=== PATIENT | male | born 1965 | race Caucasian/White ===

== ENCOUNTER → 2020-05-09 07:30 | Outpatient (CLI) | payer OTHER, SELFPAY ==
[2020-05-09 08:57] LABS: Alanine Aminotransferase 39 IU/L (<50); Albumin 4.8 g/dL (3.5-5.0); Albumin Globulin Ratio 1.5 (1.0-2.8); Alkaline Phosphatase 52 U/L (38-126); Aspartate Aminotransferase 36 IU/L (17-59); Bilirubin Total 1.1 mg/dL (0.2-1.3); Blood Urea Nitrogen 15 mg/dL (9-20); Calcium 9.7 mg/dL (8.4-10.2); Carbon Dioxide 28 mmol/L (22-32); Chloride 101 mmol/L (98-107); Cholesterol 243 mg/dL (140-199); Estimated Glomerular Filt Rate > 60.0 mL/min (>60); Globulin 3.1 g/dL (1.7-4.1); Glucose 110 mg/dL (70-100); HDL Cholesterol 47 mg/dL (40-60); HEMOLYSIS < 15 (0-50); LDL Cholesterol Calculated 180 mg/dL (<100); Potassium 4.4 mmol/L (3.4-5.1); Sodium 138 mmol/L (137-145); Total Protein 7.9 g/dL (6.3-8.2); Triglycerides 81 mg/dL (35-150)
== END ==
PROVIDERS: PCP Student in an Organized Health Care Education/Training Program; Referring Provider Student in an Organized Health Care Education/Training Program; Visit Provider Student in an Organized Health Care Education/Training Program
DX: E78.2 Mixed hyperlipidemia (principal); I10 Essential (primary) hypertension
CPT/HCPCS: 36415; 80053; 80061

== ENCOUNTER → 2020-08-20 11:06 | Outpatient (CLI) | payer OTHER, SELFPAY ==
--- NOTE | 2020-08-20 | DI.US.S_ITS ---
PROCEDURE: US ABDOMEN LIMITED INDICATIONS: RIGHT LOWER QUADRANT PAIN TECHNIQUE: Real-time focused scanning was performed of the abdomen, with image documentation. COMPARISON: None. FINDINGS: Scanning is performed of the right groin pain. At this site, there is a mild right inguinal hernia seen that measures 3.1 x 2 x 2 cm. The hernia contents move with Valsalva maneuver. There does appear to be peristalsis within the hernia contents. There is also an enlarged lymph node seen within the right groin that measures 3 x 0.8 x 1.2 cm. IMPRESSION: Right groin hernia seen, which appears to contain bowel. The hernia contents move with Valsalva maneuver. A surgical referral is recommended. If it would be helpful for clinical management decision making, please consider a dedicated pelvis CT, performed with IV and oral contrast. Dictated by: Sylvain Hilario M.D. on 08/20/2020 at 12:34 Approved by: Sylvain Hilario M.D. on 08/20/2020 at 12:36
== END ==
PROVIDERS: PCP Student in an Organized Health Care Education/Training Program; Referring Provider Student in an Organized Health Care Education/Training Program; Visit Provider Student in an Organized Health Care Education/Training Program
DX: R10.31 Right lower quadrant pain (principal); K40.90 Unilateral inguinal hernia, without obstruction or gangrene, not specified as recurrent
CPT/HCPCS: 76705

== ENCOUNTER → 2020-08-31 11:47 | Outpatient (CLI) | payer OTHER, SELFPAY ==
[2020-09-01 22:42] LABS: COVID19 Sendout Not Detected (Not Detect)
== END ==
PROVIDERS: PCP Student in an Organized Health Care Education/Training Program; Visit Provider Physician Assistant
DX: Z11.59 Encounter for screening for other viral diseases (principal)
CPT/HCPCS: 87635

== ENCOUNTER 2020-09-03 09:59 | Day surgery (SDC) | payer OTHER, SELFPAY ==
[2020-08-29 12:22] VITALS: BMI 29.0
[2020-09-03] VITALS (9 sets, daily range): BP systolic 144–158; BP diastolic 65–98; PULSE 58–86; RESP 14–28; TEMP 36.3–37; O2SAT 95–99; BMI 29.0
[2020-09-03] MEDS: LACTATED RINGERS 1,000 ML 42 ML IV (10:08)
--- NOTE | 2020-09-03 11:02 | PM.PREOP ---
Pre-operative Note COVID-19 COVID-19 status: Negative Interval Note History & Physical reviewed/Exam performed by Physician: Yes Changes to H&P: No
[2020-09-03] MEDS: CEFAZOLIN 2 GM/100 ML FROZ.PIGGY IV (11:12)
--- NOTE | 2020-09-03 11:27 | SUR.OPER ---
Supine on padded OR bed, head on pillow, arms secured on padded arm boards at <90 degrees abduction, legs uncrossed, safety belt at thigh, tape over blanket over lower legs.
[2020-09-03] MEDS: BUPIVACAINE 0.25% (PF) VIAL 30 ML INJ (11:40)
[2020-09-03] MEDS: fentaNYL 100 MCG/2 ML INJ IV ×2 (12:37→12:43)
[2020-09-03] MEDS: OXYCODONE/ACETAMINOPHEN 5/325 TABLET 1 TAB PO (13:00)
--- NOTE | 2020-09-05 10:05 | P.OP_ITS ---
Operative Date/Time/Diagnoses Date of procedure: 09/03/20 Pre-op diagnosis: Right inguinal hernia Post-op diagnosis: same Procedure & Clinicians Procedure: Open right inguinal hernia repair Same procedure as scheduled: Yes Indications: 55-year-old man with a symptomatic right inguinal hernia Surgeon: Merrick Khan Yes if Unassisted: Yes Anesthesia Type: General Operative Notes Findings: Direct floor defect, Specimen(s): none sent Estimated Blood Loss (mL): 20 Procedure in detail: The patient was placed supine on the table and bilateral lower extremity compression devices were applied. Anesthesia was induced they were intubated with an LMA and received 2g of Ancef. A time-out was performed. They were prepped and draped in sterile fashion. The right external inguinal ring and the anterior superior iliac crest were identified and marked. 1 finger breath above the inguinal ligament the skin was infiltrated with 0.25% bupivacaine. The skin incision was made here and the subcutaneous tissues were divided with electrocautery exposing the external oblique aponeurosis which was then opened along the direction of its fibers. Using blunt dissection the internal oblique aporneurosis was from the external oblique upper leaflet to identify the iliohypogastric nerve. Using a kittner the cord was carefully dissected away from the inguinal canal adjacent to the pubic tubercle. The cord including the vas deferens, testicular bloody supply, ilioguinal and genital nerve were encircled with a Brandi drain. A direct floor defect was identified and it was reduced into the abdomen and the internal oblique aporneuorsis was approximated to the inguinal ligament with 0 Ethibond suture to reapproximate the floor. The cremasteric fibers surrounding the cord were divided using electrocautery adjacent to the internal ring.. The vas deferens and the testicular vessels were preserved and protected. There was no evidence of a indirect hernia. I selected a 7x 15 cm lightweight Pro Loop hernia mesh. The inferior medial aspect of the mesh was anchored to insertion of the rectus muscle to the pubic tubercle such that there was approximately 2 cm of tubercle overlap with Ethibond and then was run continuously along the inferior edge of the mesh to the shelving edge of the inguinal ligament. Interrupted 3 0 Vicryl suture was used to anchor the superior aspect of the mesh to the conjoined tendon in several places. The tails were then reapproximated loosely around the spermatic cord. The tails of the mesh were then tucked under the external oblique aponeurosis. The repair was checked for hemostasis. The wound was irrigated with sterile saline. The external oblique aponeurosis was re approximated in a running fashion using 3 0 Vicryl. The subcutaneous tissues were reapproximated with 3 0 Vicryl skin closed with 4 0 Monocryl followed by the application of Dermabond. At the end of the operation I ensured that both testicles were within the scrotum. The sponge instrument count at the end operation was correct. The patient emerged from anesthesia was extubated and transferred to the postoperative care unit in stable condition. A total of 30 ml of of 0.25% bupivicaine was used to infiltrate the skin. Complications: none Post-operative Condition: stable Disposition: same day surgery
== END 2020-09-03 13:34 | disposition home or self-care (01) ==
PROVIDERS: PCP Student in an Organized Health Care Education/Training Program; Referring Provider Surgery; Visit Provider Surgery
PROC: (CPT 49505; principal; 2020-09-03 11:15)
DX: K40.90 Unilateral inguinal hernia, without obstruction or gangrene, not specified as recurrent (principal); I10 Essential (primary) hypertension; E78.5 Hyperlipidemia, unspecified
CPT/HCPCS: 49505; C1781; J0690; J3010

== ENCOUNTER → 2021-06-13 10:57 | Outpatient (CLI) | payer OTHER, SELFPAY ==
--- NOTE | 2021-06-13 | DI.US.S_ITS ---
PROCEDURE: US ABDOMEN LIMITED INDICATIONS: LOWER ABD PAIN TECHNIQUE: Real-time scanning was performed of the abdominal and retroperitoneal organs, with image documentation. COMPARISON: [facility], , US ABDOMEN LIMITED, 08/20/2020, 11:59. FINDINGS: Soft tissue ultrasound of the right groin was performed without and with Valsalva. No hernia in the right groin is identified. 2 prominent but normal appearing lymph nodes in the right groin are present. IMPRESSION: Normal ultrasound of the right groin with no hernia identified. Dictated by: Wilfredo Jc M.D. on 06/13/2021 at 12:03 Approved by: Wilfredo Jc M.D. on 06/13/2021 at 12:03
== END ==
PROVIDERS: PCP Student in an Organized Health Care Education/Training Program; Referring Provider Student in an Organized Health Care Education/Training Program; Visit Provider Student in an Organized Health Care Education/Training Program
DX: R10.30 Lower abdominal pain, unspecified (principal)
CPT/HCPCS: 76705

== ENCOUNTER → 2021-08-22 09:26 | Outpatient (CLI) | payer OTHER, SELFPAY ==
[2021-08-22 11:08] LABS: COVID19 -Nasal RAPID Negative (Negative)
== END ==
PROVIDERS: PCP Student in an Organized Health Care Education/Training Program; Visit Provider Surgery
DX: Z01.812 Encounter for preprocedural laboratory examination (principal); Z20.822 Contact with and (suspected) exposure to COVID-19
CPT/HCPCS: 87635; C9803

== ENCOUNTER 2021-08-25 09:51 | Day surgery (SDC) | payer OTHER, SELFPAY ==
[2021-08-25] VITALS (7 sets, daily range): BP systolic 113–135; BP diastolic 78–89; PULSE 59–80; RESP 10–97; TEMP 36.3–36.9; O2SAT 19–98; BMI 28.6
--- NOTE | 2021-08-25 | PATH_ITS ---
[facility] Accession Number: [id number] . 01 Material submitted: . PART A: sigmoid colon - SIGMOID COLON POLYP PART B: body - MUCOSA ABNORMALITY NEAR POLYP PART C: sigmoid colon - SIGMOID COLON POLYP 5MM PART D: rectum - RECTAL POLYP . 02 Diagnosis: A. Sigmoid Colon, Polyp, Biopsy: Tubulovillous adenoma. No evidence of malignancy or high-grade dysplasia. . B. Mucosal Abnormality Near Polyp, Biopsy: Colonic mucosa with no diagnostic abnormality. Negative for active, chronic, and microscopic colitis. Negative for dysplasia and malignancy. . C. Sigmoid Colon, Polyp 5 mm, Biopsy: Hyperplastic polyp. . D. Rectum, Polyp, Biopsy: Hyperplastic polyp. [facility] 08/27/2021 1032 Local . 02 Electronically signed: . Francie Reyez MD, Pathologist NPI- [id number] . 01 Gross description: . A. Received in formalin and labeled with sigmoid colon polyp are two pieces of hahn soft tissue measuring 1.3 x 1.0 x 0.6 to 0.9 x 0.7 x 0.6 cm. The first piece is inked, serially sectioned into four slices and entirely submitted in cassette A1. The second piece is inked, serially sectioned into four slices and entirely submitted in cassette A2. B. Received in formalin and labeled with mucosa ABN near polyp are two fragments of hahn soft tissue measuring 0.3 x 0.3 x 0.2 to 0.3 x 0.3 x 0.1 cm. Both fragments are entirely submitted in cassette B1. C. Received in formalin and labeled with sigmoid colon polyp 5 mm is one fragment of hahn soft tissue measuring 0.3 x 0.3 x 0.2 cm. The fragment is entirely submitted in cassette C1. D. Received in formalin and labeled with rectal polyp is one fragment of hahn soft tissue measuring 0.4 x 0.3 x 0.2 cm. The fragment is entirely submitted in cassette D1. ([id number]) /MRV 08/26/2021 0941 Local . 02 Pathologist provided ICD-10: D12.5 . 02 CPT . 318204, [id number], [id number], [id number] Performed at: 01 [facility] Cyt[facility] [address] [address], [place], [place] [id number] MD John Mobley MD Phone: [phone] Performed at: 02 [facility] [id number] [place] [id number] MD Francie Reyez MD Phone: [phone]
[2021-08-25] MEDS: LACTATED RINGERS 1,000 ML 200 ML IV (10:30)
--- NOTE | 2021-08-25 10:51 | PM.HP.1 ---
History of Present Illness History of Present Illness Date Patient Seen: 08/25/21 Time Patient Seen: 10:51 Chief complaint: SDC Narrative: The patient presents for colorectal sreening. They have never had any previous examination for such. No personal or family history of colon cancer. On further history denies any recent gastrointestinal symptoms. No nausea, vomiting, abdominal pain, loss of appetite, unexplained weight loss, change in bowel habits, diarrhea, constipation, melena, hematochezia, or bright red blood per rectum. Patient History Medical History GERD (gastroesophageal reflux disease) HTN (hypertension) Hyperlipidemia MASTER on CPAP Surgical History Hx of tonsillectomy Family & Social History Family History Mother Hypertension Heart disease Diabetes mellitus Cancer Father Hypertension Heart disease Diabetes mellitus Stroke Sister Diabetes mellitus Social History: household members spouse Tobacco & Substance use: Smoking Status Former smoker alcohol intake current alcohol intake frequency a few times a week Substance Use Type marijuana Meds Home Medications and Allergies Home Medications Medication Instructions Recorded Confirmed Type lisinopril 20 mg tablet 20 mg PO DAILY 09/18/19 10/02/20 History atorvastatin 10 mg tablet 10 mg PO DAILY 08/28/20 10/02/20 History Allergies Allergy/AdvReac Type Severity Reaction Status Date / Time No Known Drug Allergies Allergy Verified 10/02/20 10:35 Review of Systems Review of Systems ROS: Yes All systems reviewed with the patient and are negative except as otherwise documented Exam Vital Signs (past 8 hours): - 08/25/21 10:15 Temperature 97.7 F Pulse Rate 80 Respiratory Rate 16 Blood Pressure 134/89 Pulse Oximetry 98 Oxygen Delivery Method Room Air Narrative Exam Narrative: Constitutional-he is oriented to person, place and time. No apparent distress Cardiovascular- regular rate, no peripheral edema Pulmonary-unlabored respiratory effort, no audible wheezing Abdominal-soft, non-tender, non-distended Musculoskeletal-no cyanosis or clubbing Neurological-nonfocal, normal strength throughout, normal gait. Skin-warm and dry Assessment & Plan Assessment and plan (1) Screening for colon cancer: Status: Acute Assessment & Plan narrative: The patient requires colorectal screening and colonoscopy is recommended. Technical details were discussed. Risks, benefits, alternatives explained. Risks including but not limited to myocardial infarction, aspiration, bleeding, pain, missed lesion, incomplete examination, need for further radiographic studies, colonic perforation, and need for major abdominal surgery were discussed. All questions were answered to their satisfaction, and they are in agreement with this plan. Time Spent With Patient Critical Care time: I spent a total of [] minutes of critical care time on this patient's care today; this time is exclusive of procedural time.
[2021-08-25] MEDS: MIDAZOLAM 5 MG/5 ML VIAL IV (10:59)
[2021-08-25] MEDS: fentaNYL 250 MCG/5 ML INJ IV (11:01)
[2021-08-25] MEDS: METOPROLOL TARTRATE 5 MG/5 ML INJ IV (11:14)
--- NOTE | 2021-08-25 11:22 | PM.OP.ENDO ---
Operative Date/Time/Diagnoses Date of procedure: 08/25/21 Time of procedure: 11:22 Pre-op diagnosis: Screening colonoscopy Post-op diagnosis: same Procedure & Clinicians Study performed: Colonoscopy Same procedure as scheduled: Yes Indications: Screening no prior Surgeon: Merrick Kapadia Procedure Notes Procedure in detail: Medications: Conscious sedation using 5mg IV midazolam and 125mcg IV of fentanyl The history and physical was performed/updated and the patient is ASA class is 2. The procedure was discussed in detail with the patient. Potential risks complications including infection, bleeding, missed diagnosis, perforation, need for surgery, and were explained. Their questions were answered and informed consent was obtained. Patient was brought to the procedure room and placed standard monitoring equipment. The patient's vital signs were monitored continuously throughout the entire procedure. Prior to starting time-out was performed. The patient was placed in the left lateral recumbent position. Procedural sedation was administered. Examination began with a thorough inspection of the perianal area there was no evidence of fissures, fistulae, external hemorrhoids or cutaneous malignancy. The colonoscopy scope was then placed into the anal canal and was advanced to the cecum, which was identified by the ileocecal valve, the appendiceal orifice and the confluence of the taenia. The scope was then slowly withdrawn examining colon thoroughly in all directions, irrigating it of any residual stool. FINDINGS 1. 3 cm sigmoid polyp at 30 cm from the anal verge removed in pieces using hot snare. There was mucosal abnormality just distal to the polyp it was difficult to tell whether this material was continuation of the polyp or whether this was in fact just normal colonic wall mucosa. Biopsy was performed with the biopsy forceps. The lesion was removed in its entirety. The site was tattooed with 4 mL of ink injected into the submucosal space on in for quadrants just distal to the lesion. 2. Rectal polyp 5 mm removed with biopsy forceps The patient tolerated the procedure well. They will be discharged once criteria are met. The prep was of good/excellent quality. The withdrawl time was * minutes. The sedation time was * minutes. Specimen(s): other (Sigmoid polyp, mucosal abnormality biopsy, rectal polyp) Complications: none Impression: Colonic polyps Post-procedure Plan for aftercare: Will notify with results of biopsy Disposition: same day surgery
== END 2021-08-25 12:02 | disposition home or self-care (01) ==
PROVIDERS: PCP Student in an Organized Health Care Education/Training Program; Referring Provider Surgery; Visit Provider Surgery
PROC: 0DJD8ZZ Inspection of Lower Intestinal Tract, Via Natural or Artificial Opening Endoscopic (ICD-10-PCS; CPT 45378; principal; 2021-08-25 10:45)
DX: D12.5 Benign neoplasm of sigmoid colon (principal); K62.1 Rectal polyp; K21.9 Gastro-esophageal reflux disease without esophagitis; I10 Essential (primary) hypertension; E78.5 Hyperlipidemia, unspecified; G47.33 Obstructive sleep apnea (adult) (pediatric); Z12.11 Encounter for screening for malignant neoplasm of colon
CPT/HCPCS: 45385; 45380; 45381; J2250; J3010

== ENCOUNTER 2021-11-21 12:49 | Emergency (ER) | payer OTHER, SELFPAY ==
[2021-11-21] VITALS (13 sets, daily range): BP systolic 155–219; BP diastolic 97–115; PULSE 68–83; RESP 14–20; TEMP 36.3; O2SAT 96–98; BMI 30.8
--- NOTE | 2021-11-21 13:15 | DI.RAD.S_ITS ---
PROCEDURE: XR CHEST 1V INDICATIONS: chest pain TECHNIQUE: One view of the chest was acquired. COMPARISON: None. FINDINGS: Surgical changes and devices: None. Lungs and pleura: Lungs are clear. No pleural effusions or pneumothorax. Mediastinum: Mediastinal contours appear normal. Heart size is normal. The aorta is tortuous. Bones and chest wall: No suspicious bony lesions. Overlying soft tissues appear unremarkable. IMPRESSION: No acute cardiopulmonary abnormality. Dictated by: Wilfredo Jc M.D. on 11/21/2021 at 12:49 Approved by: Wilfredo Jc M.D. on 11/21/2021 at 12:49
[2021-11-21 13:41] LABS: Add Manual Diff / Slide Review NO; Basophils Absolute Auto 100 /uL (0-100); Basophils Percent Auto 0.8 % (0-2); Eosinophils Absolute Auto 200 /uL (0-450); Eosinophils Percent Auto 2.5 % (2-4); Hematocrit 43.8 % (41-53); Hemoglobin 15.4 g/dL (13.5-17.5); Lymphocytes Absolute Auto 1700 /uL (1100-4500); Lymphocytes Percent Auto 20.2 % (25-40); Mean Corpuscular HGB Conc 35.2 % (30-36); Mean Corpuscular Hemoglobin 30.7 PG (26-34); Mean Corpuscular Volume 87.3 fL (80-100); Monocytes Absolute Auto 900 /uL (0-900); Monocytes Percent Auto 10.1 % (3-14); Neutrophils Absolute Auto 5600 /uL (1500-7000); Neutrophils Percent Auto 66.4 % (50-75); Platelet Count 236 X10^3/uL (150-400); Red Blood Cell Count 5.01 X10^6/uL (4.5-5.9); Red Cell Distribution Width 12.7 % (11.6-14.8); White Blood Cell Count 8.5 X10^3/uL (4.5-11.0)
[2021-11-21 13:44] LABS: INR 1.1 (0.9-1.3); Prothrombin Time 12.1 SECONDS (10.1-12.7)
[2021-11-21 13:46] LABS: PTT Partial Thromboplastin Tim 34 SECONDS (26.4-36.2)
[2021-11-21 13:49] LABS: Alanine Aminotransferase 54 IU/L (<50); Albumin 4.9 g/dL (3.5-5.0); Albumin Globulin Ratio 1.5 (1.0-2.8); Alkaline Phosphatase 49 U/L (38-126); Aspartate Aminotransferase 46 IU/L (17-59); BUN Creatinine Ratio 13.2 (6-22); Bilirubin Total 1.6 mg/dL (0.2-1.3); Blood Urea Nitrogen 10 mg/dL (9-20); Calcium 9.3 mg/dL (8.4-10.2); Carbon Dioxide 29 mmol/L (22-32); Chloride 101 mmol/L (98-107); Creatine Kinase 93 U/L (55-170); Estimated Glomerular Filt Rate > 60.0 mL/min (>60); Globulin 3.3 g/dL (1.7-4.1); Glucose 95 mg/dL (70-100); Lipase 218 U/L (23-300); Magnesium 1.7 mg/dL (1.6-2.3); Potassium 4.1 mmol/L (3.4-5.1); Sodium 139 mmol/L (137-145); Total Protein 8.2 g/dL (6.3-8.2)
[2021-11-21 13:50] LABS: HEMOLYSIS 56 (0-50)
[2021-11-21 14:00] LABS: Troponin I < 0.012 ng/mL (0.01-0.034)
--- NOTE | 2021-11-21 16:47 | ED.GENADULT ---
HPI - General Adult General Chief complaint: Hypertension Stated complaint: High blood pressure/pain behind left ear today Time Seen by Provider: 11/21/21 16:46 Source: patient Mode of arrival: Ambulatory Limitations: no limitations History of Present Illness HPI narrative: This is a 56-year-old male who comes to the emergency department with complaint of high blood pressure and pain behind left ear. Patient states he has had elevated blood pressure for the past week. He saw his primary care who increased his lisinopril from 20 mg to 40 mg daily. He takes this in the morning. His only other medication is atorvastatin. Patient today had a 205/105. He has a blood pressures that he has checked 2 or 3 times daily since the 18 ranging anywhere from 120/75 to 200/1 teens. There does not appear to be any consistency with his blood pressure. He also notes he has had some discomfort just behind the left ear in the crease. He does not recall any injuries. He has not any had warmth, erythema or skin changes. It feels like it is just local to that area. He does wear CPAP and masks for work which do seem to be irritated. Has not had headaches. He denies chest pain, no shortness of breath. He has not had any hearing changes, no pain within the ear. No pain in the neck or in the cheek or mouth he has not had any other swelling. No sweats. No fevers or chills. No nausea or vomiting no other GI or urinary symptoms. Patient states he does get very anxious when his blood pressure is high. Besides dyslipidemia and hypertension no other medical issues. No prior cardiac stents. He has had hernia and colonoscopy. No allergies. He quit smoking 12 years ago in . He drinks 4-5 hard alcoholic drinks daily but denies any withdrawal symptoms when he does not drink. No illicit drugs. His primary care is Chante Martin. Related Data Home Medications Medication Instructions Recorded Confirmed lisinopril 20 mg tablet 20 mg PO DAILY 09/18/19 09/04/21 atorvastatin 10 mg tablet 10 mg PO DAILY 08/28/20 09/04/21 Previous Rx's Medication Instructions Recorded metoprolol tartrate 25 mg tablet 25 mg PO DAILY #14 tab 11/21/21 Allergies Allergy/AdvReac Type Severity Reaction Status Date / Time No Known Drug Allergies Allergy Verified 09/04/21 15:11 Review of Systems Review of Systems ROS Unobtainable: All systems reviewed & are unremarkable except as noted in HPI and below Patient History Medical History GERD (gastroesophageal reflux disease) HTN (hypertension) Hyperlipidemia MASTER on CPAP Surgical History Hx of tonsillectomy Family History Mother Hypertension Heart disease Diabetes mellitus Cancer Father Hypertension Heart disease Diabetes mellitus Stroke Sister Diabetes mellitus Social History marital status: household members: spouse occupational status: employed Smoking Status: Former smoker alcohol intake: current Smoking Status: Former smoker alcohol intake frequency: a few times a week Substance Use Type: marijuana Exam Narrative Exam Narrative: GEN: well nourished, well appearing male, alert and oriented x 3, patient appears to be in mild distress. HEENT: Atraumatic, pupils are equal round reactive to light, extraocular movements are intact, nares are clear, TMs are clear with no fluid, patient is nontender to palpation. There is an area that appears slightly callused in the posterior crease of the left ear. There is no warmth, erythema or swelling. There is no rash or skin changes. There is no fluctuance. Does not feel indurated. Patient does not have any swelling of the neck, cheeks or airway. He is nontender over the parotid gland and salivary glands. With no bony tenderness. Is no conjunctival pallor. Throat is clear without any exudates, erythema, tonsillar enlargement or uvular deviation HEART: Regular rate and rhythm without murmur, clicks, rubs. No carotid bruits. LUNGS:Lungs clear to auscultation, no wheezes, rales, crackles, chest moves symmetrically ABD:bowel sounds normal, soft, non-tender, no guarding, rebound, rigidity, no masses noted, no hepatosplenomegaly :No CVA tenderness MSCL: Non-tender, no muscle atrophy, muscles strength 5/5 upper and lower extremities, full range of motion, normal gait NEURO:CN 2-12 intact SKIN: No rash, erythema or skin changes. Initial Vital Signs Initial Vital Signs: Vital Signs Temperature 97.4 F L 11/21/21 12:55 Pulse Rate 83 11/21/21 12:55 Respiratory Rate 20 11/21/21 12:55 Blood Pressure 204/115 H 11/21/21 12:55 Pulse Oximetry 98 11/21/21 12:55 Course Orders Ordered: ED Orders 11/21/21 13:08 EKG-12 Lead Stat 11/21/21 13:15 XR chest 1V Stat 11/21/21 13:25 Complete Blood Count AUTO DIFF Stat Comprehensive Metabolic Panel Stat Lipase Stat Magnesium Stat Partial Thromboplastin Time Stat Prothrombin Time INR Stat Troponin & CK Cardiac Panel Stat Discontinued Medications Metoprolol Tartrate (Metoprolol Ir 25 Mg Tablet) 12.5 mg PO NOW ONE Stop: 11/21/21 17:14 Last Admin: 11/21/21 17:35 Dose: 12.5 mg Documented by: PARESH Vital Signs Vital signs: Vital Signs - 8 hr 11/21/21 12:55 11/21/21 13:05 11/21/21 13:30 Temperature 97.4 F L Pulse Rate 83 83 68 Respiratory Rate 20 15 Blood Pressure 204/115 H 219/107 H 177/102 H Pulse Oximetry 98 96 96 11/21/21 14:00 11/21/21 14:30 11/21/21 15:00 Temperature Pulse Rate 71 70 71 Respiratory Rate 14 14 14 Blood Pressure 174/104 H 185/104 H 193/102 H Pulse Oximetry 96 96 98 11/21/21 15:30 11/21/21 16:00 11/21/21 16:30 Temperature Pulse Rate 70 74 78 Respiratory Rate 14 17 17 Blood Pressure 155/97 H 185/101 H 178/100 H Pulse Oximetry 97 97 97 11/21/21 17:00 11/21/21 17:29 11/21/21 17:30 Temperature Pulse Rate 72 69 68 Respiratory Rate 17 16 Blood Pressure 200/101 H 162/99 H Pulse Oximetry 98 97 96 11/21/21 17:46 Temperature Pulse Rate 73 Respiratory Rate Blood Pressure 168/104 H Pulse Oximetry 97 Medical Decision Making Lab Data Result diagrams: 11/21/21 13:25 11/21/21 13:25 Labs: Lab Results 11/21/21 11/21/21 11/21/21 Range/Units 13:25 13:25 13:25 WBC 8.5 (4.5-11.0) X10^3/uL RBC 5.01 (4.5-5.9) X10^6/uL Hgb 15.4 (13.5-17.5) g/dL Hct 43.8 (41-53) % MCV 87.3 (80-100) fL MCH 30.7 (26-34) PG MCHC 35.2 (30-36) % RDW 12.7 (11.6-14.8) % Plt Count 236 (150-400) X10^3/uL Neut % (Auto) 66.4 (50-75) % Lymph % (Auto) 20.2 L (25-40) % [place] % (Auto) 10.1 (3-14) % Eos % (Auto) 2.5 (2-4) % Baso % (Auto) 0.8 (0-2) % Neut # (Auto) 5600 (6290-0678) /uL Lymph # (Auto) 1700 (5245-3566) /uL [place] # (Auto) 900 (0-900) /uL Eos # (Auto) 200 (0-450) /uL Baso # (Auto) 100 (0-100) /uL PT 12.1 (10.1-12.7) SECONDS INR 1.1 (0.9-1.3) APTT 34 (26.4-36.2) SECONDS Sodium 139 (137-145) mmol/L Potassium 4.1 (3.4-5.1) mmol/L Chloride 101 (98-107) mmol/L Carbon Dioxide 29 (22-32) mmol/L BUN 10 (9-20) mg/dL Creatinine 0.76 (0.66-1.25) mg/dL Estimated GFR > 60.0 (>60) mL/min BUN/Creatinine Ratio 13.2 (6-22) Glucose 95 (70-100) mg/dL Calcium 9.3 (8.4-10.2) mg/dL Magnesium 1.7 (1.6-2.3) mg/dL Total Bilirubin 1.6 H (0.2-1.3) mg/dL AST 46 (17-59) IU/L ALT 54 H (<50) IU/L Alkaline Phosphatase 49 (38-126) U/L Total Creatine Kinase 93 (55-170) U/L CK-MB (CK-2) TNP CK-MB (CK-2) Rel Index TNP Troponin I < 0.012 (0.01-0.034) ng/mL Total Protein 8.2 (6.3-8.2) g/dL Albumin 4.9 (3.5-5.0) g/dL Globulin 3.3 (1.7-4.1) g/dL Albumin/Globulin Ratio 1.5 (1.0-2.8) Lipase 218 (23-300) U/L Imaging Data Chest x-ray: Radiologist's Impression: Miguel HDZ JR??56??M??1965 ? Allergy/Adv: No Known Drug Allergies (More??) Close Chest X-Ray (Signed) Wilfredo Jc - 11/21/21 Telemetry Strips 08/25/21 Abdomen Ultrasound (Signed) Wilfreod Jc - 06/13/21 Abdomen Ultrasound (Signed) Sylvain Hilario - 08/20/20 [place] [address] XRay Report Signed Patient: Miguel HDZ JR MR#: [id number] : 1965 Acct:[id number] Age/Sex: 56 / M Date of Service: 11/21/21 Loc: Accession Number: [id number] ?? Procedure: XR chest 1V Ordering Provider: Ammy Mccray D.O. PROCEDURE:? XR CHEST 1V ? INDICATIONS:? chest pain ? TECHNIQUE:? One view of the chest was acquired.? ? COMPARISON:? None. ? FINDINGS:? ? Surgical changes and devices:? None.? ? Lungs and pleura:? Lungs are clear.? No pleural effusions or pneumothorax.? ? Mediastinum:? Mediastinal contours appear normal.? Heart size is normal.? The aorta is tortuous. ? Bones and chest wall:? No suspicious bony lesions.? Overlying soft tissues appear unremarkable.? ? IMPRESSION:? No acute cardiopulmonary abnormality. ? ? Dictated by: Wilfredo Jc M.D. on 11/21/2021 at 12:49 ? ? Approved by: Wilfredo Jc M.D. on 11/21/2021 at 12:49 ECG Data Attestation: I personally reviewed and interpreted this ECG as follows: Interpretation: Sinus rhythm, rate of 71 OH 156 QRS of 106 and QTC of 449. No acute ST changes appreciated. [facility] Narrative Medical decision making narrative: This is a 56-year-old male comes to the emergency department with complaint of pain behind his left ear. No skin changes, no swelling, no warmth or erythema or other infectious changes. He does not appear to have any enlarged lymph nodes. His exam is reassuring. He has not any pain radiating down to the neck or elsewhere that indicates a different problem. It is very localized to a single spot just behind year. Patient is hypertensive and states he has been quite hypertensive for the past week he was slowly improving but was still 100 diastolic. He has had his lisinopril recently increased. He was started on a dose of oral metoprolol here with plan for follow-up with his primary care. Return precautions were discussed all questions answered. Patient has a home arm blood pressure cuff that he will continue to monitor. Discharge Plan Departure Patient Disposition: Home Clinical Impression: Hypertension, Posterior auricular pain of left ear Instructions: DI for High Blood Pressure Activity Restrictions/Additional Instructions: Follow-up with your physician for recheck. Your ear does not show any signs of infection, rash or other changes. It may be helpful to use some padding or mole skin on the crease to see if this improves her symptoms particularly when wearing your CPAP or mask. Your blood pressure here has been consistently elevated. It may be helpful to start a secondary oral medication for your blood pressure. Recommend to continue to keep a log of her blood pressure is unsure these with her physician. Prescription was sent to [facility] in [facility]. They are open 10am-4pm tomorrow. Please return for severe headaches, any redness, swelling increasing pain, pain within the ear, jaw or neck, fevers, new chest pain or shortness of breath, lightheadedness or passing out, vomiting or other new or concerning symptoms. Prescriptions: New metoprolol tartrate 25 mg tablet 25 mg PO DAILY Qty: 14 0RF No Action atorvastatin 10 mg tablet 10 mg PO DAILY 0RF lisinopril 20 mg tablet 20 mg PO DAILY 0RF Referrals: Chante Farris PA-C [Primary Care Provider] -
[2021-11-21] MEDS: METOPROLOL IR 25 MG TABLET 12.5 MG PO (17:35)
== END 2021-11-21 17:46 | disposition home or self-care (01) ==
PROVIDERS: Emergency Provider Emergency Medicine; PCP Student in an Organized Health Care Education/Training Program
DX: I10 Essential (primary) hypertension (principal); Z87.891 Personal history of nicotine dependence
CPT/HCPCS: 36415; 71045; 80053; 82550; 83690; 83735; 84484; 85025; 85610; 85730; 93005; 99284

== ENCOUNTER → 2022-12-22 11:25 | Outpatient (CLI) | payer OTHER, SELFPAY ==
--- NOTE | 2022-12-22 | DI.US.S_ITS ---
PROCEDURE: US ABDOMEN LIMITED INDICATIONS: RT GROIN PAIN,S/P INGUINAL HERNIA REPAIR TECHNIQUE: Real-time focused scanning was performed of the abdomen, with image documentation. Color Doppler was also utilized. COMPARISON: [facility], US, US ABDOMEN LIMITED, 06/13/2021, 10:08. [facility], US, US ABDOMEN LIMITED, 08/20/2020, 11:59. [facility], CT, CT ABDOMEN PELVIS WITH CONTRAST, 07/03/2021, 10:10. FINDINGS: Scanning is performed at the area of clinical concern within the right inguinal region. At this site, there is a hernia seen, with the appearance of omental fat within it. The hernia sac measures 3.1 x 1.2 x 1.9 cm. The abdominal wall defect measures 1 cm. Note is made of a prominent right groin lymph node measuring 3.2 x 0.5 x 0.9 cm. IMPRESSION: Recurrent right inguinal hernia seen, which appears to contain omental fat on these images. Please consider follow-up CT and surgical consultation, as clinically appropriate. Dictated by: Sylvain Hilario M.D. on 12/22/2022 at 11:39 Approved by: Sylvain Hilario M.D. on 12/22/2022 at 11:41
== END ==
PROVIDERS: PCP Student in an Organized Health Care Education/Training Program; Referring Provider Student in an Organized Health Care Education/Training Program; Visit Provider Student in an Organized Health Care Education/Training Program
DX: K40.91 Unilateral inguinal hernia, without obstruction or gangrene, recurrent (principal); R10.31 Right lower quadrant pain
CPT/HCPCS: 76705

== ENCOUNTER 2023-01-15 10:51 | Day surgery (SDC) | payer OTHER, SELFPAY ==
[2023-01-12 11:49] VITALS: BMI 30.5
[2023-01-15] VITALS (9 sets, daily range): BP systolic 118–162; BP diastolic 72–88; PULSE 67–87; RESP 11–18; TEMP 36.1–36.9; O2SAT 96–99; BMI 30.5
[2023-01-15] MEDS: LACTATED RINGERS 1,000 ML 100 ML IV ×2 (11:16→13:33)
--- NOTE | 2023-01-15 12:12 | PM.PREOP ---
Pre-operative Note Interval Note History & Physical reviewed/Exam performed by Physician: Yes Changes to H&P: No
[2023-01-15] MEDS: CEFAZOLIN 2 GM/100 ML PREMIX 100 ML IV (12:20)
--- NOTE | 2023-01-15 12:55 | SUR.OPER ---
Supine on padded OR bed, head on pillow, arms padded and tucked at sides, legs uncrossed, safety belt at thigh, tape over blanket over lower legs .
[2023-01-15] MEDS: BUPIVACAINE 0.5% W/ EPI (PF) 30 ML VIAL INJ (13:01)
--- NOTE | 2023-01-15 13:47 | PM.OP.1 ---
Operative Date/Time/Diagnoses Date of procedure: 01/15/23 Time of procedure: 13:47 Pre-op diagnosis: Recurrent right inguinal Post-op diagnosis: same Procedure & Clinicians Procedure: Laparoscopic repair of recurrent right hernia Same procedure as scheduled: Yes Indications: 57-year-old man previous open right inguinal hernia repair here for elective repair of recurrent hernia Operative Notes Findings: small fat containing indirect defect, no direct floor defect. Specimen(s): none sent Estimated Blood Loss (mL): 20 Procedure in detail: The patient was brought to the operating room and placed supine on the table. Bilateral sequential compression devices were applied. General anesthesia was induced and they were intubated with an endotracheal tube. A urrutia cath was placed in sterile fashion. They received 900g clindaymycin prior to skin incision. They were prepped and draped in sterile fashion. A time out was performed to ensure the correct patient, procedure and necessary equipment within the operating room. The skin was infiltrated with 0.25% bupivicaine. A 1 cm supra umbilical midline incision was made. The fascia was sharply incised and the abdomen entered traumatically. A 10mm balloon port was placed and pneumoperitoneum was established at 15mm Hg. Inspection of the abdomen demonstrated no evidence of injury upon entry. Two 5 mm ports were then placed under direct visualization in the right and left lower quadrant lateral to the rectus muscle. A right indirect defect was observed. The peritoneum 4 cm superior to the deep inguinal ring between the medial umbilical ligament and the anterior superior iliac spine was incised. The medial preperitoneal dissection was carried out into the space of Retzius bluntly, the bladder was swept inferiorly, the pubis and Tone's ligament were identified. Next attention was turned towards the lateral aspect of the peritoneal flap. The preperitoneal fat with the testicular vessels was carefully dissected off the inferior peritoneal flap. The cord was carefully inspected there was a small fat containing indirect hernia which was skeltonized off the cord preserving the testicular vessels and the vas deferns. There was no evidence of a direct floor defect. A medium Bard 3D Max mesh was then placed into the abdomen and positioned such that the myopectineal orifice was completely covered with good overlap on all sides. The peritoneal flap was then repositioned back to its original position and a running V lock suture was used to close the peritoneum such that no bowel could herniate into the preperitoneal space. The area was examined for hemostasis. The 5mm trocars were removed under direct visualization and pneumoperitoneum was deflated through the umbilical trocar, The fascia at the umbilicus was closed with 0-Vicryl in figure of 8 fashion, skin closed with 4-0 Monocyl followed by Dermabond. The sponge and instrument count at the end of the case was correct. Both testicles were entirely within the scrotum at the end of the case. The patient emerged from anesthsia was extubated and transferred to recovery in stable condition. Complications: none Post-operative Condition: stable Disposition: same day surgery
[2023-01-15] MEDS: OXYCODONE/ACETAMINOPHEN 5/325 TABLET 1 TAB PO ×2 (13:58→14:39)
[2023-01-15] MEDS: fentaNYL 100 MCG/2 ML INJ IV (13:59)
== END 2023-01-15 14:45 | disposition home or self-care (01) ==
PROVIDERS: PCP Student in an Organized Health Care Education/Training Program; Referring Provider Surgery; Visit Provider Surgery
PROC: 0YQ54ZZ Repair Right Inguinal Region, Percutaneous Endoscopic Approach (ICD-10-PCS; CPT 49651; principal; 2023-01-15 12:15)
DX: K40.91 Unilateral inguinal hernia, without obstruction or gangrene, recurrent (principal); G47.33 Obstructive sleep apnea (adult) (pediatric); I10 Essential (primary) hypertension; K21.9 Gastro-esophageal reflux disease without esophagitis
CPT/HCPCS: 49651; J0690; J1100; J1885; J2405; J2704; J3010